=== PATIENT | male | born 1950 | race Caucasian/White ===

== ENCOUNTER 2020-06-22 10:09 | Emergency (ER) | payer OTHER, SELFPAY ==
[2020-06-22 10:11] VITALS: BP 183/104; PULSE 74; RESP 18; TEMP 36.9; O2SAT 97; BMI 28.0
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
[2020-06-22 12:13] VITALS: BP 185/112; PULSE 66; RESP 16; O2SAT 98
== END 2020-06-22 12:13 | disposition home or self-care (01) ==
PROVIDERS: Emergency Provider Physician Assistant; PCP Internal Medicine
DX: S13.9XXA Sprain of joints and ligaments of unspecified parts of neck, initial encounter (principal); V89.2XXA Person injured in unspecified motor-vehicle accident, traffic, initial encounter
CPT/HCPCS: 70450; 72125; 99283

== ENCOUNTER 2023-03-29 15:15 | Emergency (ER) | payer OTHER, MEDICARE, SELFPAY ==
[2023-03-29] VITALS (7 sets, daily range): BP systolic 148–175; BP diastolic 74–114; PULSE 90–110; RESP 16–18; TEMP 36.4; O2SAT 92–97; BMI 26.2
[2023-03-29 15:35] LABS: Basophils # 0.1 10^3/uL (0.0-0.1); Basophils % 0.2 %; Hematocrit 44.5 % (37-53); Lymphocytes # 1.6 10^3/uL (0.8-4.8); Lymphocytes % 5.8 %; Mean Corpuscular HGB Conc 33.7 g/dL (30-55); Mean Corpuscular Hemoglobin 28.5 pg (27-33); Mean Corpuscular Volume 84.6 fl (82-101); Mean Platelet Volume 9.8 fL (7.4-10.4); Monocytes # 2.5 10^3/uL (0.2-0.9); Monocytes % 8.9 %; Neutrophils # 23.56 10^3/uL (1.8-7.7); Neutrophils % 84.4 %; Nucleated Red Blood Cells % 0 %; Platelet Count 299 10^3/cmm (157-399); Red Blood Count 5.26 10^6/uL (3.85-5.65); Red Cell Distribution Width 13.4 % (12.1-15.1); White Blood Count 27.91 10^3/uL (3.29-11.43)
[2023-03-29 15:52] LABS: Alanine Aminotransferase 40 U/L (0-41); Albumin Level 3.8 g/dL (3.5-5.2); Alkaline Phosphatase 105 U/L (40-130); Anion Gap 16.3 (5-19); Aspartate Amino Transferase 30 U/L (0-40); Blood Urea Nitrogen 19 mg/dL (8-23); Calcium 9.6 mg/dL (8.5-10.5); Carbon Dioxide 23 mmol/L (22-29); Chloride 98 mmol/L (98-107); Globulin 3.3 g/dL (1.3-4.6); Glucose 131 mg/dL (65-115); Lipase 18 U/L (13-60); Osmolality Calculated 280 mOsm/kg (285-295); Potassium 4.3 mmol/L (3.5-5.1); Sodium 133 mmol/L (136-145); Total Protein 7.1 g/dL (6.6-8.7)
--- NOTE | 2023-03-29 16:10 | CTR_ITS ---
PROCEDURE INFORMATION: Exam: CT Abdomen And Pelvis With Contrast Exam date and time: 03/29/2023 4:40 PM Age: 72 years old Clinical indication: Fever; Abdominal pain; Flank; Other: Josh; Additional info: Ruq/epigastric pain into back, elevated wbc TECHNIQUE: Imaging protocol: Computed tomography of the abdomen and pelvis with contrast. Radiation optimization: All CT scans at this facility use at least one of these dose optimization techniques: automated exposure control; mA and/or kV adjustment per patient size (includes targeted exams where dose is matched to clinical indication); or iterative reconstruction. Contrast material: OMNI 350; Contrast volume: 100 ml; Contrast route: INTRAVENOUS (IV); REPORTING DATA: Count of CT and Cardiac NM exams in prior 12 months: This patient has received 0 known CTs and 0 known cardiac nuclear medicine studies in the 12 months prior to the current study. COMPARISON: abdomen limited [id number] 10/11/2017 9:33 AM RADIATION DOSE METRICS: Total DLP (mGy-cm): 680.14 FINDINGS: Liver: Tiny hepatic cysts. Gallbladder and bile ducts: The gallbladder is distended with wall thickening and pericholecystic inflammation. Common duct measures up to approximately 8 mm, upper limits of normal for this demographic. No cholelithiasis or choledocholithiasis is identified. No loculated collection in this region. Pancreas: No ductal dilation. Spleen: No splenomegaly. Adrenal glands: No mass. Kidneys and ureters: No stones or hydronephrosis. Stomach and bowel: Postsurgical changes of the GE junction. Gastroesophageal reflux. No obstruction. Inflammatory changes surrounding the right upper quadrant bowel near the gallbladder fossa likely reactive. Appendix: Normal appendix. Intraperitoneal space: No free air. No significant fluid collection. Vasculature: No abdominal aortic aneurysm. Lymph nodes: No enlarged lymph nodes. Urinary bladder: No acute findings. Reproductive: Mild prostatomegaly. Bones/joints: Degenerative changes without acute findings. Soft tissues: Unremarkable. CT/CT abdomen pelvis w con* [id number] IMPRESSION: Acute, uncomplicated cholecystitis without visible gallstones by CT.
--- NOTE | 2023-03-29 16:14 | ED_ITS ---
Documented by User: Salo Adhikari DO 03/29/23 17:52 HPI - Abdominal Pain 2 General: Chief Complaint: Abdominal Pain Stated Complaint: Abdominal Pain Time Seen by Provider: 03/29/23 16:01 History of Present Illness: Patient presents to the ER after going to the urgent care earlier today for complaints of abdominal pain. This is right upper quadrant/epigastric abdominal pain it has been getting worse over about the last 3 days. Patient says hurt so bad at night that he cannot sleep. Patient is currently on omeprazole for his acid reflux. Patient states he had a stomach wrap in the past for his acid reflux which sounds like a lap Tata. Upon arrival to the ER patient is pulse was 110. Blood pressure 163/74. Patient denies any nausea vomiting diarrhea fevers chills. 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 Surgical History Hx of abdominal surgery states he had a lap esophagus surgery for GERD Family History Other Diabetes Denies family history of CAD (coronary artery disease) Hyperlipidemia Hypertension Social History Smoking and tobacco/nicotine status: current every day tobacco/nicotine user smokeless tobacco Smokeless tobacco user: chewing tobacco Alcohol intake: never Substance/Drug Use: never Physical Exam 2 Const: COMMON NORMALS: no acute distress, average body habitus, patient oriented x3, no limitations, healthy appearing, alert and well nourished HENMT: COMMON NORMALS: normocephalic, atraumatic, hearing grossly normal bilaterally, external ears normal, Normal external nose present, moist oral mucous membranes and oropharynx normal HEAD & SCALP: normocephalic and atraumatic NOSE: Normal external nose present EXTERNAL EAR: Yes external ears normal Neck/C-Spine: COMMON NORMALS: no JVD Chest: COMMONS NORMALS: normal inspection of the chest and normal palpation of entire chest wall Resp: COMMON NORMALS: normal respiratory effort, No retractions, No use of accessory muscles and clear to auscultation bilaterally AUSCULTATION: clear to auscultation bilaterally Cardio: COMMON NORMALS: no JVD, regular rate, regular rhythm, S1 normal heart sound present, S2 normal heart sound present, No gallops present (Cardio), No clicks present (Cardio), No murmurs present (Cardio) and No rub (Cardio) R ATE: regular rate RHYTHM: regular rhythm HEART SOUNDS: S1 normal heart sound present and S2 normal heart sound present GI: COMMON NORMALS: Normal to inspection, nondistended, normoactive bowel sounds present, Soft to palpation, No hepatosplenomegaly present and no masses; negative for non-tender (Tender to palpate over right upper quadrant and epigastric region) PALPATION: Yes Soft to palpation and Yes No hepatosplenomegaly present Neuro: COMMON NORMALS: patient oriented x3 SENSORIUM/ORIENTATION: Yes alert Course 2 Vital Signs: Vital signs: Vital Signs Temperature 97.6 F 03/29/23 15:22 Pulse Rate 101 H 03/29/23 18:57 Respiratory Rate 18 03/29/23 20:41 Blood Pressure 174/100 03/29/23 20:41 Pulse Oximetry 92 03/29/23 20:41 Oxygen Delivery Me thod Room Air 03/29/23 20:41 MDM - Abdominal Pain Medical Decision Making Lab work was obtained which showed a white count of 27,000 liver enzymes are within normal limits. CT of abdomen pelvis showed acute uncomplicated cholecystitis without visible gallstones on CT. Dr. Alegria was consulted who said due to the patient's high white count and acalculus cholecystitis he needs a cystoscopy tube. We are unable to perform this here since radiology is unavailable on the weekend. He would prefer the patient transferred. Dr. Alegria said he would be right down to put a note in the chart. Patient was notified of this and chooses to go to [place] if possible if not [place]. Patient was given Zosyn 3.375 g IV. Differential Diagnosis Likely abdominal pain; Unlikely acute appendicitis, calculus of kidney, constipation, diverticulitis, endometriosis, gastroenteritis, pancreatitis or small bowel obstruction Medical Records I reviewed the patient's medical records. Lab Data I reviewed the patient's lab results. 03/29/23 15:30 03/29/23 15:30 Labs/Radiology: Radiology Impressions Abdomen/Pelvis CT 03/29/23 16:10 IMPRESSION: Acute, uncomplicated cholecystitis without visible gallstones by CT. Laboratory Results WBC 27.91 10^3/uL (3.29-11.43) H 03/29/23 15:30 RBC 5.26 10^6/uL (3.85-5.65) 03/29/23 15:30 Hgb 15.00 g/dL (11.27-16.99) 03/29/23 15:30 Hct 44.5 % (37-53) 03/29/23 15:30 MCV 84.6 fl (82-101) 03/29/23 15:30 MCH 28.5 pg (27-33) 03/29/23 15:30 MCHC 33.7 g/dL (30-55) 03/29/23 15:30 RDW 13.4 % (12.1-15.1) 03/29/23 15:30 Plt Count 299 10^3/cmm (157-399) 03/29/23 15:30 MPV 9.8 fL (7.4-10.4) 03/29/23 15:30 Neut % (Auto) 84.4 % 03/29/23 15:30 Lymph % (Auto) 5.8 % 03/29/23 15:30 [place] % (Auto) 8.9 % 03/29/23 15:30 Eos % (Auto) 0.0 % 03/29/23 15: Baso % (Auto) 0.2 % 03/29/23 15:30 Neut # (Auto) 23.56 10^3/uL (1.8-7.7) H 03/29/23 15:30 Lymph # (Auto) 1.6 10^3/uL (0.8-4.8) 03/29/23 15:30 [place] # (Auto) 2.5 10^3/uL (0.2-0.9) H 03/29/23 15:30 Eos # (Auto) 0.0 10^3/uL (0.0-0.8) 03/29/23 15:30 Baso # (Auto) 0.1 10^3/uL (0.0-0.1) 03/29/23 15:30 Nucleated RBC % (auto) 0 % 03/29/23 15:30 Nucleated RBCs # 0.0 /100WBC 03/29/23 15:30 Sodium 133 mmol/L (136-145) L 03/29/23 15:30 Potassium 4.3 mmol/L (3.5-5.1) 03/29/23 15:30 Chloride 98 mmol/L (98-107) 03/29/23 15:30 Carbon Dioxide 23 mmol/L (22-29) 03/29/23 15:30 Anion Gap 16.3 (5-19) 03/29/23 15:30 BUN 19 mg/dL (8-23) 03/29/23 15:30 Creatinine 1.0 mg/dL (0.7-1.2) 03/29/23 15:30 GFR Calculation Not Reportable 03/29/23 15:30 Glucose 131 mg/dL (65-115) H 03/29/23 15:30 Calculated Osmolality 280 mOsm/kg (285-295) L 03/29/23 15:30 Calcium 9.6 mg/dL (8.5-10.5) 03/29/23 15:30 Total Bilirubin 1.0 mg/dL (0.15-1.2) 03/29/23 15:30 AST 30 U/L (0-40) 03/29/23 15:30 ALT 40 U/L (0-41) 03/29/23 15:30 Alkaline Phosphatase 105 U/L (40-130) 03/29/23 15:30 Total Protein 7.1 g/dL (6.6-8.7) 03/29/23 15:30 Albumin 3.8 g/dL (3.5-5.2) 03/29/23 15:30 Globulin 3.3 g/dL (1.3-4.6) 03/29/23 15:30 Lipase 18 U/L (13-60) 03/29/23 15:30 All radiology interpretation(s) finalized by discharge Discharge Plan Discharge Patient Disposition: Xfer Short-Term Hosp Clinical Impression: Cholecystitis without calculus Leukocytosis Qualifiers: Leukocytosis type: unspecified Qualified Code(s): D72.829 - Elevated white blood cell count, unspecified Condition: Stable Referrals: [place],Duane L, HABITAT BIOLOGIST [Primary Care Provider] - Coding Level of Care Code ED Communications Technologist for Chg Fwd Documented by User: Ana Kerns MD 03/29/23 21:24 HPI - Abdominal Pain 2 General: Chief Complaint: Abdominal Pain Stated Complaint: Abdominal Pain Time Seen by Provider: 03/29/23 16:01 PFSH ED 2 PFSH: Medical History Acute abdominal pain Essential hypertension GERD (gastroesophageal reflux disease) Bursitis of left knee Cerebral microvascular disease 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 I was told the patient to be transferred to the hospital for procedure. I discussed patient with Dr. Linn at [facility] in [place]. Patient was accepted for further evaluation and treatment. Discussed this with patient and . Vital Signs: Vital signs: Vital Signs Temperature 97.6 F 03/29/23 15:22 Pulse Rate 101 H 03/29/23 18:57 Respiratory Rate 18 03/29/23 20:41 Blood Pressure 174/100 03/29/23 20:41 Pulse Oximetry 92 03/29/23 20:41 Oxygen Delivery Me thod Room Air 03/29/23 20:41 MDM - Abdominal Pain Lab Data 03/29/23 15:30 03/29/23 15:30 Labs/Radiology: Radiology Impressions Abdomen/Pelvis CT 03/29/23 16:10 IMPRESSION: Acute, uncomplicated cholecystitis without visible gallstones by CT. Laboratory Results WBC 27.91 10^3/uL (3.29-11.43) H 03/29/23 15:30 RBC 5.26 10^6/uL (3.85-5.65) 03/29/23 15:30 Hgb 15.00 g/dL (11.27-16.99) 03/29/23 15:30 Hct 44.5 % (37-53) 03/29/23 15:30 MCV 84.6 fl (82-101) 03/29/23 15:30 MCH 28.5 pg (27-33) 03/29/23 15:30 MCHC 33.7 g/dL (30-55) 03/29/23 15:30 RDW 13.4 % (12.1-15.1) 03/29/23 15:30 Plt Count 299 10^3/cmm (157-399) 03/29/23 15:30 MPV 9.8 fL (7.4-10.4) 03/29/23 15:30 Neut % (Auto) 84.4 % 03/29/23 15:30 Lymph % (Auto) 5.8 % 03/29/23 15:30 [place] % (Auto) 8.9 % 03/29/23 15:30 Eos % (Auto) 0.0 % 03/29/23 15: Baso % (Auto) 0.2 % 03/29/23 15:30 Neut # (Auto) 23.56 10^3/uL (1.8-7.7) H 03/29/23 15:30 Lymph # (Auto) 1.6 10^3/uL (0.8-4.8) 03/29/23 15:30 [place] # (Auto) 2.5 10^3/uL (0.2-0.9) H 03/29/23 15:30 Eos # (Auto) 0.0 10^3/uL (0.0-0.8) 03/29/23 15:30 Baso # (Auto) 0.1 10^3/uL (0.0-0.1) 03/29/23 15:30 Nucleated RBC % (auto) 0 % 03/29/23 15:30 Nucleated RBCs # 0.0 /100WBC 03/29/23 15:30 Sodium 133 mmol/L (136-145) L 03/29/23 15:30 Potassium 4.3 mmol/L (3.5-5.1) 03/29/23 15:30 Chloride 98 mmol/L (98-107) 03/29/23 15:30 Carbon Dioxide 23 mmol/L (22-29) 03/29/23 15:30 Anion Gap 16.3 (5-19) 03/29/23 15:30 BUN 19 mg/dL (8-23) 03/29/23 15:30 Creatinine 1.0 mg/dL (0.7-1.2) 03/29/23 15:30 GFR Calculation Not Reportable 03/29/23 15:30 Glucose 131 mg/dL (65-115) H 03/29/23 15:30 Calculated Osmolality 280 mOsm/kg (285-295) L 03/29/23 15:30 Calcium 9.6 mg/dL (8.5-10.5) 03/29/23 15:30 Total Bilirubin 1.0 mg/dL (0.15-1.2) 03/29/23 15:30 AST 30 U/L (0-40) 03/29/23 15:30 ALT 40 U/L (0-41) 03/29/23 15:30 Alkaline Phosphatase 105 U/L (40-130) 03/29/23 15:30 Total Protein 7.1 g/dL (6.6-8.7) 03/29/23 15:30 Albumin 3.8 g/dL (3.5-5.2) 03/29/23 15:30 Globulin 3.3 g/dL (1.3-4.6) 03/29/23 15:30 Lipase 18 U/L (13-60) 03/29/23 15:30 Discharge Plan Discharge Patient Disposition: Xfer Short-Term Hosp Clinical Impression: Cholecystitis without calculus Leukocytosis Qualifiers: Leukocytosis type: unspecified Qualified Code(s): D72.829 - Elevated white blood cell count, unspecified Condition: Stable Referrals: Duane Mcmahon, HABITAT BIOLOGIST [Primary Care Provider] - Coding Level of Care Code ED Communications Technologist for Chg Fwd
[2023-03-29] MEDS: sodium chloride 0.9% 1,000 ML 999 ML IV (16:32)
[2023-03-29] MEDS: famotidine 20 mg/2 mL INJ 40 MG IVP (16:32)
[2023-03-29] MEDS: pantoprazole 40 mg SDV IVP (16:36)
[2023-03-29] MEDS: iohexol 350 mg/mL 500 mL Btl (per mL) IV (16:44)
[2023-03-29] MEDS: piperacillin-tazobactam 3.375 GM in sodium chloride 0.9% (plus) 50 ML IV (17:26)
--- NOTE | 2023-03-29 18:08 | P.CONIM_ITS ---
Providers/Reason For Consult 2 Consulting Physician/Specialty*: General surgery Reason for Consult*: Acute acalculus cholecystitis Primary Care Provider: Duane Mcmahon History of Present Illness History of Present Illness Gagandeep Alejandro is a 72 year old male who presents with 4 days of abdominal pain in the right upper quadrant associated with lack of appetite, pain worsens with movement and with food ingestion, has become constant. CT scan done on the emergency department show evidence of acute acalculous cholecystitis. I was consulted for this finding. Review of Systems 2 General: Reports: 10 or more systems reviewed and unremarkable except in HPI and below Medications/Allergies Home Medications Medication Instructions Recorded Confirmed Last Taken Type multivitamin 1 tab PO BEDTIME 06/22/20 03/29/23 03/28/23 History omeprazole 40 mg capsule,delayed 40 mg PO QAM 06/22/20 03/29/23 03/29/23 History release aspirin 81 mg tablet,delayed 81 mg PO DAILY 03/29/23 03/29/23 03/29/23 History release lisinopril 20 mg tablet 10 mg PO DAILY 03/29/23 03/29/23 03/29/23 History metoclopramide HCl 10 mg tablet 10 mg PO Q6H PRN nausea/epigastric 03/29/23 03/29/23 03/29/23 Rx (Reglan) pain #60 tabs Allergies Allergy/AdvReac Type Severity Reaction Status Date / Time No Known Allergies Allergy Verified 03/29/23 08:08 PFSH Acute 2 PFSH: Medical History Acute abdominal pain Essential hypertension GERD (gastroesophageal reflux disease) Bursitis of left knee Cerebral microvascular disease 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 Surgical History Hx of abdominal surgery states he had a lap esophagus surgery for GERD Family History Other Diabetes Denies family history of CAD (coronary artery disease) Hyperlipidemia Hypertension Social History Smoking and tobacco/nicotine status: current every day tobacco/nicotine user smokeless tobacco Smokeless tobacco user: chewing tobacco Alcohol intake: never Substance/Drug Use: never Vitals/I&O/Wt Last Vital Signs Temp 97.6 F 03/29/23 15:22 Pulse 95 03/29/23 16:57 Resp 16 03/29/23 16:57 BP 150/90 03/29/23 16:57 Pulse Ox 96 03/29/23 16:57 O2 Del Method Room Air 03/29/23 16:57 Weight last 48 hrs Weight 183 lb Physical Exam 2 Narrative: General : Patient is well developed , no acute distress, oriented x3 Head : Normal cephalic, a-traumatic. Nose : Mucous membranes are without erythema. Lungs : Equal chest rise bilaterally, no use of accessory muscles, trachea is midline. CV : Rate and rhythm are normal. Abdomen : Soft, there is tenderness in the right upper quadrant and Israel sign positive. Extremities : No edema. Upper extremities are normal bilaterally. Back : non-tender to palpation, no CVA tenderness. Data 03/29/23 15:30 03/29/23 15:30 A&P Assessment and plan (1) Cholecystitis without calculus: Plan After complete history physical examination and review of all available clinical data the following is my assessment. This is a 72-year-old male who presents with acute acalculous cholecystitis, symptoms have been going on for more than 72 hours. His white count is elevated to 27,000, without significant changes in the LFTs. After my evaluation of the patient due to the timeline of symptoms imaging findings and my personal interpretation of the CT scan of the abdomen showing significant right upper quadrant inflammatory changes that not only involve the gallbladder but the immediately adjacent colon and duodenum I think the best and safest option for him is to proceed with nonoperative management with antibiotic treatment and drainage of the gallbladder with a cholecystostomy tube. Unfortunately interventional radiology is not available overnight or on the weekends in our institution, therefore the recommendation is transfer to a facility with IR availability for cholecystostomy tube placement and nonoperative management of acute acalculous cholecystitis. I Discussed with the patient that after drainage and initial treatment he can expect to have a cholecystectomy in about 6 to 8 weeks. Patient shows understanding and wishes to continue with the proposed treatment. At the moment of my evaluation patient is a stable with no significant hemodynamic instability or changes suggesting sepsis, he is stable for transfer to outside facility from the general surgery standpoint. Coding Level of Care Code 38687 Diagnoses Cholecystitis without calculus K81.9
[2023-03-29] MEDS: HYDROmorphone 1 mg/mL INJ 1 mL 0.5 MG IVP (21:35)
== END 2023-03-29 21:44 | disposition short-term general hospital (02) ==
PROVIDERS: Emergency Medicine; Emergency Provider Emergency Medicine; PCP Clinical Nurse Specialist Adult Health
DX: K81.9 Cholecystitis, unspecified (principal); D72.829 Elevated white blood cell count, unspecified; I10 Essential (primary) hypertension; F17.220 Nicotine dependence, chewing tobacco, uncomplicated
CPT/HCPCS: 36415; 74177; 80053; 83690; 85025; 96365; 96375; 99285; C9113; J1170; J2543; J3490; J7030; Q9967

== ENCOUNTER → 2023-08-05 10:40 | Outpatient (BNVA) | payer OTHER, MEDICARE, SELFPAY | PROVIDERS: PCP Clinical Nurse Specialist Adult Health; Visit Provider Clinical Nurse Specialist Adult Health | DX: K59.1 Functional diarrhea (principal) | CPT/HCPCS: 87493 ==

== ENCOUNTER → 2024-02-20 11:23 | Outpatient (BNVA) | payer OTHER, MEDICARE, SELFPAY | PROVIDERS: PCP Family Medicine; Visit Provider Family Medicine | DX: M25.50 Pain in unspecified joint (principal); M15.9 Polyosteoarthritis, unspecified | CPT/HCPCS: 80053; 84443; 84550; 85025; 85651; 86038; 86140; 86431 ==

== ENCOUNTER 2024-03-17 11:10 | Outpatient (CLI) | payer OTHER, SELFPAY ==
--- NOTE | 2024-03-17 09:47 | ECG_ITS ---
[facility] Test Date: 2024-03-17 Pat Name: Gagandeep Alejandro Department: Room: Gender: Male Director Of Hospitality: : 1950 Requested By: CATHY Clay Order Number: [id number] Robles MD: Meera Chung M.D. Interpretive Statements Lung unchanged pre/post procedure; Intraprocedure shortess of breath; Symptoms resoled by discharge Electronically Signed On 03-20-2024 13:15:56 [employer] by Meera Chung M.D. [email or web address]
[2024-03-17 11:26] VITALS: BMI 26.7
[2024-03-17 11:50] VITALS: BP 191/95; PULSE 90
== END 2024-03-17 11:11 | disposition home or self-care (01) ==
LOC: CDL 11:10
PROVIDERS: PCP Family Medicine; Visit Provider Nurse Practitioner Family
DX: R06.00 Dyspnea, unspecified (principal); R06.02 Shortness of breath
CPT/HCPCS: 93017